=== PATIENT | female | born 1980 | race Hispanic/Latino ===

== ENCOUNTER 2018-06-09 15:07 | Emergency (ER) | payer SELFPAY | END 2018-06-09 16:00 | disposition home or self-care (01) | LOC: ERS 15:07 | DX: L02.412 Cutaneous abscess of left axilla (principal); E11.9 Type 2 diabetes mellitus without complications; F17.210 Nicotine dependence, cigarettes, uncomplicated | CPT/HCPCS: 36416; 99283 ==